=== PATIENT | male | born 1980 | race Caucasian/White ===

== ENCOUNTER 2017-02-18 20:56 | Inpatient (IN) | payer SELFPAY ==
[2017-02-18 21:08] LABS: #Basophils 0.1 thou/uL (0.0-0.2); #Eosinphils 0.2 thou/uL (0.0-0.7); #Lymphocytes 2.5 thou/uL (1.20-3.40); #Monocytes 0.7 thou/uL (0.11-0.59); #Neutrophils 6.8 thou/uL (1.40-6.50); %Basophils 0.9 % (0.0-1.0); %Eosinophils 2.1 % (0.0-10.0); %Lymphocytes 24.4 % (21.0-51.0); %Monocytes 6.6 % (0.0-10.0); Mean Platelet Volume 7.1 fL (7.4-10.4); Red Blood Cell (RBC) Count 4.66 mill/uL (4.70-6.10); White Blood Cell (WBC) Count 10.3 thou/uL (4.8-10.8)
[2017-02-18 21:16] LABS: PTT 23.4 SEC (22.9-36.1); Prothrombin Time 12.9 SEC (12.0-14.7)
[2017-02-18] MEDS ORDERED: Propofol 1,000 MG/100 ML VIAL IV ONE (21:17)
[2017-02-18 21:20] LABS: Lactic Acid - Sepsis 1.7 mmol/L (0.5-2.2)
[2017-02-18 21:23] LABS: ALT (SGPT) 18 U/L (8-55); AST (SGOT) 19 U/L (5-34); Alkaline Phosphatase 67 U/L (40-150); Anion Gap 14 mmol/L (10-20); BUN (Urea Nitrogen) 13 mg/dL (8.9-20.6); Bilirubin, Total 0.2 mg/dL (0.2-1.2); Calc. Creatinine Clearance 0 mL/min (70-130); Calcium 8.4 mg/dL (7.8-10.44); Carbon Dioxide 24 mmol/L (22-29); Chloride 105 mmol/L (98-107); Estimated GFR-MDRD 70; Globulin 2.9 g/dL (2.4-3.5); Lipase 23 U/L (8-78)
[2017-02-18 21:24] LABS: Acetaminophen Less than 6.0 mcg/mL (10.0-30.0); Salicylate Less than 8.0 mg/dL (15.0-30.0)
[2017-02-18 21:28] LABS: Bilirubin Negative (Negative); Blood, Urine Negative (Negative); Glucose, Urine (Dipstick) Negative (Negative); Ketone, Urine Negative (Negative); Nitrite Negative (Negative); Protein, Urine (Dipstick) Negative (Neg-Trace); Urobilinogen 0.2 mg/dL (0.2-1.0)
[2017-02-18 21:38] LABS: Amphetamine Not Detected (NotDetected); Methadone Not Detected (NotDetected); Methamphetamine Not Detected (NotDetected)
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
[2017-02-18] MEDS ORDERED: Sedation Protocol FS SCH (22:12)
[2017-02-18] MEDS ORDERED: DISCONTINUE PREVIOUS NARCOTIC PAIN MEDICATIONS AND BENZODIAZEPINES FS SCH (22:16)
[2017-02-18] MEDS ORDERED: Fentanyl 20 MCG/ML 250 ML IVPB SCH (22:16)
[2017-02-18] MEDS ORDERED: Lorazepam 2 MG/ML VIAL SLOW IVP PRN (22:16)
--- NOTE | 2017-02-18 22:24 | RAD ---
PORTABLE SUPINE CHEST: 02/18/17 Lungs are well aerated. ET tube is in place with tip above the jeremi. There is some questioned streaky atelectasis or infiltrate in the left lung base seen to the cardiac silhouette. This could potentially represent aspiration. Close followup recommended. IMPRESSION: Questioned atelectasis or streaky infiltrate in the left lung base seen to the cardiac silhouette. POS: [facility]
[2017-02-18] MEDS ORDERED: Morphine PF 1 MG/ML SYR IVP PRN (22:30)
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
[2017-02-18 22:58] LABS: Oxyhemoglobin 96.4 % (94.0-97.0); Sodium 141 mmol/L (135-148)
[2017-02-18 23:01] LABS: Mechanical Tidal Volume 500 ml; Mode SIMV; Modified Allen's Test POSITIVE; Vent YES
[2017-02-18] MEDS ORDERED: Dextrose 50% Abboject 50 ML SYRINGE SLOW IVP PRN (23:23)
[2017-02-18] MEDS ORDERED: Promethazine HCl 25 MG/ML VIAL IM PRN (23:23)
[2017-02-18] MEDS ORDERED: Dextrose 5% in Water 1,000 ML IV PRN (23:23)
[2017-02-18] MEDS ORDERED: Ondansetron HCl/PF 4 MG/2 ML Vial IVP PRN (23:23)
[2017-02-19] MEDS: Piperacillin/Tazobactam 4.5 GM in Sodium Chloride 0.9% 100 ML IVPB SCH ×5 (00:12→23:42)
[2017-02-19] MEDS: Propofol 1,000 MG/100 ML VIAL IV PRN ×4 (00:38→10:25)
[2017-02-19] MEDS: Sodium Chloride 0.9% 1,000 ML IV SCH ×2 (00:41→07:27)
[2017-02-19 00:50] VITALS: BMI 25.4
[2017-02-19 05:25] LABS: #Basophils 0.1 thou/uL (0.0-0.2); #Lymphocytes 2.5 thou/uL (1.20-3.40); #Monocytes 1.4 thou/uL (0.11-0.59); #Neutrophils 10.1 thou/uL (1.40-6.50); %Basophils 0.7 % (0.0-1.0); %Eosinophils 0.3 % (0.0-10.0); %Lymphocytes 17.8 % (21.0-51.0); %Monocytes 9.7 % (0.0-10.0); Hematocrit 42.7 % (42.0-52.0); Mean Platelet Volume 7.7 fL (7.4-10.4); Red Blood Cell (RBC) Count 4.61 mill/uL (4.70-6.10); White Blood Cell (WBC) Count 14.1 thou/uL (4.8-10.8)
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
[2017-02-19 05:48] LABS: Anion Gap 18 mmol/L (10-20); BUN (Urea Nitrogen) 13 mg/dL (8.9-20.6); Calc. Creatinine Clearance 110 mL/min (70-130); Calcium 8.9 mg/dL (7.8-10.44); Carbon Dioxide 21 mmol/L (22-29); Chloride 106 mmol/L (98-107); Estimated GFR-MDRD 81; Magnesium 2.5 mg/dL (1.6-2.6); Phosphorus 2.6 mg/dL (2.3-4.7)
[2017-02-19] MEDS ORDERED: Bacitracin Zinc 1 Packet TOP PRN (06:55)
[2017-02-19 07:43] LABS: Oxyhemoglobin 97.4 % (94.0-97.0); Sodium 141 mmol/L (135-148)
[2017-02-19 08:15] LABS: Mechanical Tidal Volume 500 ml; Modified Allen's Test NOT DONE; Pressure Support 10 cmH2O; Vent YES
[2017-02-19 08:16] LABS: Mode PSIMV
[2017-02-19] MEDS: Famotidine/PF 20 mg/2ml Vial SLOW IVP SCH ×3 (08:38→20:53)
[2017-02-19] MEDS ORDERED: FLU VACC QS2017-18 36 mo. & older 0.5 ML SYRINGE IM ONE (09:00)
--- NOTE | 2017-02-19 09:03 | RAD ---
PORTABLE SUPINE FRONTAL CHEST RADIOGRAPH: DATE: 02/19/17. COMPARISON: 02/18/17. HISTORY: Rib fractures, trauma. FINDINGS: Supine imaging is provided, limiting assessment for pneumothorax and pleural fluid. A nasogastric tu be extends into the upper abdomen. An endotracheal tube terminates at the level of the clavicular he ads. No focal consolidation or alveolar edema. IMPRESSION: Lines and tubes as detailed above. POS: [facility]
[2017-02-19] MEDS ORDERED: Chlorhexidine Gluconate 15 ML UDCUP SSP ONE (11:37)
[2017-02-19] MEDS ORDERED: Lidocaine 1% w/Epinephrine 1:200K 30 ML VIAL ONE (11:37)
[2017-02-19] MEDS ORDERED: Fentanyl 250 MCG/5 ML VIAL ONE (11:39)
[2017-02-19] MEDS ORDERED: Oxymetazoline HCl 0.05% ( 15 ML ) ONE (11:39)
[2017-02-19] MEDS ORDERED: Lidocaine 2% Jelly 5 ML TUBE ONE (11:40)
[2017-02-19] MEDS ORDERED: Sodium Chloride 0.9% 10 ML ONE (12:28)
[2017-02-19] MEDS ORDERED: Ondansetron HCl/PF 4 MG/2 ML Vial IVP PRN (13:38)
[2017-02-19] MEDS ORDERED: Promethazine HCl 25 MG/ML VIAL IM PRN (13:38)
[2017-02-19] MEDS ORDERED: Promethazine HCl 25 MG/ML VIAL SLOW IVP PRN (13:38)
[2017-02-19] MEDS ORDERED: Fentanyl 100 MCG/2 ML VIAL ONE (14:08)
[2017-02-19] MEDS ORDERED: traMADol HCl 50 MG TAB PO PRN (14:44)
[2017-02-19] MEDS: traMADol HCl 50 MG TAB PO PRN (16:20)
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
[2017-02-19] MEDS: Cephalexin 250 MG CAP PO SCH ×3 (16:24→21:02)
[2017-02-19] MEDS: Oxazepam 10 MG CAP PO SCH ×2 (16:24→21:02)
[2017-02-19] MEDS ORDERED: Acetaminophen 500 MG TAB PO SCH (18:00)
[2017-02-19] MEDS ORDERED: Ondansetron HCl/PF 4 MG/2 ML Vial ONE (18:11)
[2017-02-19] MEDS ORDERED: Glycopyrrolate 0.2 MG/ML 5 ML SYRINGE ONE (18:11)
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
[2017-02-19] MEDS: Chlorhexidine Gluconate 15 ML UDCUP SSP SCH (20:32)
[2017-02-19] MEDS: Ibuprofen 800 MG TAB PO SCH (21:02)
[2017-02-19] MEDS ORDERED: Hydrocodone-Acetamin 15 ML UDCUP PO PRN (21:07)
[2017-02-19] MEDS: Hydrocodone-Acetamin 15 ML UDCUP PO PRN (21:28)
[2017-02-20] MEDS: traMADol HCl 50 MG TAB PO PRN (01:53)
[2017-02-20] MEDS: Hydrocodone-Acetamin 15 ML UDCUP PO PRN (03:49)
[2017-02-20 05:34] LABS: #Basophils 0.1 thou/uL (0.0-0.2); #Eosinphils 0.3 thou/uL (0.0-0.7); #Lymphocytes 1.9 thou/uL (1.20-3.40); #Monocytes 0.9 thou/uL (0.11-0.59); #Neutrophils 4.4 thou/uL (1.40-6.50); %Basophils 0.8 % (0.0-1.0); %Eosinophils 3.4 % (0.0-10.0); %Monocytes 11.5 % (0.0-10.0); Hematocrit 37.2 % (42.0-52.0); Mean Platelet Volume 7.3 fL (7.4-10.4); Red Blood Cell (RBC) Count 3.96 mill/uL (4.70-6.10); White Blood Cell (WBC) Count 7.4 thou/uL (4.8-10.8)
[2017-02-20 06:00] LABS: Anion Gap 8 mmol/L (10-20); BUN (Urea Nitrogen) 9 mg/dL (8.9-20.6); Calc. Creatinine Clearance 98 mL/min (70-130); Calcium 8.5 mg/dL (7.8-10.44); Carbon Dioxide 29 mmol/L (22-29); Chloride 106 mmol/L (98-107); Estimated GFR-MDRD 71; Magnesium 2.1 mg/dL (1.6-2.6); Phosphorus 3.3 mg/dL (2.3-4.7)
[2017-02-20] MEDS: Ibuprofen 800 MG TAB PO SCH ×3 (06:11→21:02)
[2017-02-20] MEDS: Piperacillin/Tazobactam 4.5 GM in Sodium Chloride 0.9% 100 ML IVPB SCH (06:11)
[2017-02-20] MEDS: Oxazepam 10 MG CAP PO SCH ×3 (06:11→21:02)
[2017-02-20] MEDS: Folic Acid 1 MG TAB PO SCH (08:28)
[2017-02-20] MEDS: Cephalexin 250 MG CAP PO SCH ×4 (08:28→20:51)
[2017-02-20] MEDS: Famotidine/PF 20 mg/2ml Vial SLOW IVP SCH (08:28)
[2017-02-20] MEDS: Chlorhexidine Gluconate 15 ML UDCUP SSP SCH ×2 (08:28→20:51)
[2017-02-20] MEDS ORDERED: Hydrocodone-Acetamin 15 ML UDCUP PO PRN ×2 (09:17)
[2017-02-20] MEDS ORDERED: HYDROcodone/Acetaminophen 7.5/325 mg Tablet PO PRN (10:07)
--- NOTE | 2017-02-20 10:30 | PRG ---
DATE OF PROGRESS NOTE: 02/20/2017 SUBJECTIVE: Manjeet Cotton is awake and alert this morning, open wound in his left base present. Bandag e present. He is tolerating his diet. OBJECTIVE: LUNGS: Clear to auscultation. CARDIAC: Regular rate and rhythm without murmur or gallop. ABDOMEN: Soft, nontender. EXTREMITIES: Unremarkable. PLAN: Patient requiring Lortab elixir for pain control. [facility] will be seeing him today. Patient is r ana for transfer to the psychiatric center for his suicide attempt. He is stable from a medical sta ndpoint. He can be discharged home today. Pending [facility] evaluation. He will follow up with [facility] as an outpatient.
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
[2017-02-20] MEDS: HYDROcodone/Acetaminophen 7.5/325 mg Tablet PO PRN ×3 (14:15→23:36)
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
[2017-02-20] MEDS: Famotidine 20 MG TAB PO SCH (20:52)
[2017-02-20] MEDS: Enoxaparin Sodium 40 MG/0.4 ML SYRINGE SC SCH (20:52)
[2017-02-21] MEDS: Oxazepam 10 MG CAP PO SCH ×3 (06:19→21:11)
[2017-02-21] MEDS: Ibuprofen 800 MG TAB PO SCH ×3 (06:19→21:11)
[2017-02-21] MEDS: HYDROcodone/Acetaminophen 7.5/325 mg Tablet PO PRN ×5 (06:19→22:11)
[2017-02-21] MEDS: Folic Acid 1 MG TAB PO SCH (08:41)
[2017-02-21] MEDS: Cephalexin 250 MG CAP PO SCH ×4 (08:42→21:10)
[2017-02-21] MEDS: Famotidine 20 MG TAB PO SCH ×2 (08:42→21:11)
[2017-02-21] MEDS: Chlorhexidine Gluconate 15 ML UDCUP SSP SCH ×2 (08:42→21:11)
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
[2017-02-21] MEDS: Enoxaparin Sodium 40 MG/0.4 ML SYRINGE SC SCH (21:11)
[2017-02-22] MEDS: HYDROcodone/Acetaminophen 7.5/325 mg Tablet PO PRN (06:14)
[2017-02-22] MEDS: Ibuprofen 800 MG TAB PO SCH ×3 (06:15→21:58)
[2017-02-22] MEDS: Oxazepam 10 MG CAP PO SCH ×3 (06:15→21:58)
[2017-02-22] MEDS: Cephalexin 250 MG CAP PO SCH ×4 (09:13→21:58)
[2017-02-22] MEDS: Chlorhexidine Gluconate 15 ML UDCUP SSP SCH ×2 (09:13→21:58)
[2017-02-22] MEDS: Famotidine 20 MG TAB PO SCH ×2 (09:13→22:06)
[2017-02-22] MEDS: Folic Acid 1 MG TAB PO SCH (09:13)
[2017-02-22] MEDS: Acetaminophen 500 MG TAB PO SCH ×3 (10:40→21:58)
[2017-02-22] MEDS: Ondansetron ODT 4 MG TAB PO PRN (11:29)
[2017-02-22] MEDS: traMADol HCl 50 MG TAB PO SCH ×3 (11:29→22:06)
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
[2017-02-22] MEDS: Enoxaparin Sodium 40 MG/0.4 ML SYRINGE SC SCH (21:58)
[2017-02-23] MEDS: Acetaminophen 500 MG TAB PO SCH ×4 (03:28→21:54)
[2017-02-23] MEDS: traMADol HCl 50 MG TAB PO SCH ×4 (03:29→21:55)
[2017-02-23] MEDS: Ibuprofen 800 MG TAB PO SCH ×3 (06:17→21:55)
[2017-02-23] MEDS: Oxazepam 10 MG CAP PO SCH ×3 (06:17→21:55)
[2017-02-23] MEDS: Folic Acid 1 MG TAB PO SCH (09:58)
[2017-02-23] MEDS: Cephalexin 250 MG CAP PO SCH ×4 (09:59→21:54)
[2017-02-23] MEDS: Famotidine 20 MG TAB PO SCH ×2 (09:59→21:55)
[2017-02-23] MEDS: Chlorhexidine Gluconate 15 ML UDCUP SSP SCH ×2 (11:35→21:54)
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
[2017-02-23] MEDS: Enoxaparin Sodium 40 MG/0.4 ML SYRINGE SC SCH (21:55)
[2017-02-24] MEDS: Acetaminophen 500 MG TAB PO SCH ×4 (02:43→21:26)
[2017-02-24] MEDS: traMADol HCl 50 MG TAB PO SCH ×4 (02:44→21:27)
[2017-02-24] MEDS: Oxazepam 10 MG CAP PO SCH ×3 (06:42→22:32)
[2017-02-24] MEDS: Ibuprofen 800 MG TAB PO SCH ×3 (06:42→21:27)
[2017-02-24] MEDS: Ondansetron ODT 4 MG TAB PO PRN ×3 (06:42→21:26)
[2017-02-24] MEDS: Famotidine 20 MG TAB PO SCH ×2 (08:25→21:26)
[2017-02-24] MEDS: Chlorhexidine Gluconate 15 ML UDCUP SSP SCH ×2 (08:25→21:27)
[2017-02-24] MEDS: Cephalexin 250 MG CAP PO SCH ×4 (08:25→21:26)
[2017-02-24] MEDS: Folic Acid 1 MG TAB PO SCH (08:25)
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
[2017-02-24] MEDS: Enoxaparin Sodium 40 MG/0.4 ML SYRINGE SC SCH (21:26)
[2017-02-24] MEDS: diphenhydrAMINE 25 MG CAP PO PRN (22:47)
[2017-02-25] MEDS: traMADol HCl 50 MG TAB PO SCH ×4 (03:19→20:54)
[2017-02-25] MEDS: Acetaminophen 500 MG TAB PO SCH ×4 (03:20→20:53)
[2017-02-25] MEDS: Ondansetron ODT 4 MG TAB PO PRN ×4 (03:23→20:53)
[2017-02-25] MEDS: Ibuprofen 800 MG TAB PO SCH ×3 (06:02→22:31)
[2017-02-25] MEDS: Oxazepam 10 MG CAP PO SCH ×3 (06:02→22:31)
[2017-02-25] MEDS ORDERED: ISOVUE-370 76%-LOCM 1 ML ONE (07:54)
[2017-02-25] MEDS: Folic Acid 1 MG TAB PO SCH (08:40)
[2017-02-25] MEDS: Chlorhexidine Gluconate 15 ML UDCUP SSP SCH ×2 (08:40→20:53)
[2017-02-25] MEDS: Cephalexin 250 MG CAP PO SCH ×4 (08:40→20:53)
[2017-02-25] MEDS: Famotidine 20 MG TAB PO SCH ×2 (08:40→21:05)
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
[2017-02-25] MEDS ORDERED: Morphine 2 mg/2ml in 0.9% NaCl PF SYRINGE SLOW IVP SCH (17:45)
--- NOTE | 2017-02-25 17:53 | CT ---
EXAM: CT FACIAL BONES WITH CONTRAST 02/25/17 HISTORY: Swelling. Recent trauma. COMPARISON: Noncontrast facial bone CT 02/18/17. TECHNIQUE: A postcontrast facial bone CT is performed in the axial plane. Reformatted images are submitted for i nterpretation. FINDINGS: there is interval resolution of previously noted subcutaneous emphysema along the left facial soft ti ssue structures. There is persistent induration and edema of the left facial subcutaneous fat. There is stable edema involving the left muscles of mastication. There is stable intrinsic hyperdensity inv olving the left masseter muscle. There is no evidence of a soft tissue abscess in the left face. Symmetric signal intensity enhancement of the parotid and submandibular glands. Symmetric signal enha ncement of the sternocleidomastoid muscles. No evidence of lymphadenopathy in the visualized facial structures. The aerodigestive tract is patent . No mucosal abnormality. No obvious masses in the oral cavity. Midline fatty raphae of the tongue is preserved. Adequate aeration of the sinuses and mastoid air cells. Minimal left maxillary sinus mucosal disease. Bilaterally, osteomeatal complexes are patent. Nasal septum is intact. Appropriate appearance and configuration of the left and right mandibular condyles. Mandible and maxi lla does not demonstrate any fracture. IMPRESSION: Left facial swelling and posttraumatic change. No evidence of a drainable abscess. POS: [facility]
[2017-02-25] MEDS: Enoxaparin Sodium 40 MG/0.4 ML SYRINGE SC SCH (20:55)
[2017-02-25] MEDS: diphenhydrAMINE 25 MG CAP PO PRN (22:31)
[2017-02-26] MEDS: traMADol HCl 50 MG TAB PO SCH ×4 (03:32→23:36)
[2017-02-26] MEDS: Acetaminophen 500 MG TAB PO SCH ×4 (03:33→21:39)
[2017-02-26] MEDS: Ibuprofen 800 MG TAB PO SCH ×3 (05:48→21:39)
[2017-02-26] MEDS: Oxazepam 10 MG CAP PO SCH ×3 (05:48→21:39)
[2017-02-26] MEDS: Chlorhexidine Gluconate 15 ML UDCUP SSP SCH ×2 (08:38→21:39)
[2017-02-26] MEDS: Famotidine 20 MG TAB PO SCH ×2 (08:38→21:39)
[2017-02-26] MEDS: Folic Acid 1 MG TAB PO SCH (08:38)
[2017-02-26] MEDS: Cephalexin 250 MG CAP PO SCH ×3 (08:38→17:31)
[2017-02-26] MEDS: Ondansetron ODT 4 MG TAB PO PRN ×2 (09:53→15:38)
[2017-02-26] MEDS ORDERED: Morphine 4 MG/ML VIAL SLOW IVP SCH ×2 (12:00→17:45)
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
[2017-02-26] MEDS ORDERED: Clindamycin 150 MG CAP PO SCH (17:30)
[2017-02-26] MEDS ORDERED: traMADol HCl 50 MG TAB PO SCH ×2 (19:00→23:59)
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
[2017-02-26] MEDS: diphenhydrAMINE 25 MG CAP PO PRN (22:51)
[2017-02-26] MEDS: Clindamycin 150 MG CAP PO SCH (23:36)
[2017-02-27] MEDS: Acetaminophen 500 MG TAB PO SCH ×4 (03:58→21:06)
[2017-02-27] MEDS: Clindamycin 150 MG CAP PO SCH ×4 (05:36→23:49)
[2017-02-27] MEDS: traMADol HCl 50 MG TAB PO SCH ×4 (05:36→23:49)
[2017-02-27] MEDS: Ibuprofen 800 MG TAB PO SCH ×3 (05:36→21:06)
[2017-02-27] MEDS: Oxazepam 10 MG CAP PO SCH ×3 (05:36→21:06)
[2017-02-27] MEDS: Famotidine 20 MG TAB PO SCH ×2 (08:56→21:06)
[2017-02-27] MEDS: Folic Acid 1 MG TAB PO SCH (08:56)
[2017-02-27] MEDS: Chlorhexidine Gluconate 15 ML UDCUP SSP SCH ×2 (09:59→21:06)
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
[2017-02-27] MEDS: Enoxaparin Sodium 40 MG/0.4 ML SYRINGE SC SCH (21:07)
[2017-02-27] MEDS: diphenhydrAMINE 25 MG CAP PO PRN (23:49)
[2017-02-28] MEDS: Acetaminophen 500 MG TAB PO SCH ×4 (04:20→21:12)
[2017-02-28] MEDS: Ibuprofen 800 MG TAB PO SCH ×3 (06:56→21:12)
[2017-02-28] MEDS: Clindamycin 150 MG CAP PO SCH ×3 (06:56→17:50)
[2017-02-28] MEDS: Oxazepam 10 MG CAP PO SCH ×3 (06:56→21:13)
[2017-02-28] MEDS: traMADol HCl 50 MG TAB PO SCH ×3 (06:56→17:50)
[2017-02-28] MEDS: Famotidine 20 MG TAB PO SCH ×2 (09:12→20:32)
[2017-02-28] MEDS: Folic Acid 1 MG TAB PO SCH (09:12)
[2017-02-28] MEDS: Chlorhexidine Gluconate 15 ML UDCUP SSP SCH ×2 (10:18→21:13)
[2017-02-28] MEDS ORDERED: Dexamethasone 4 mg/ml Vial SLOW IVP SCH (12:00)
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
[2017-02-28] MEDS: Dexamethasone 4 MG TAB PO SCH ×2 (12:09→20:32)
[2017-02-28] MEDS: Enoxaparin Sodium 40 MG/0.4 ML SYRINGE SC SCH (20:33)
[2017-03-01] MEDS: traMADol HCl 50 MG TAB PO SCH ×5 (00:24→23:56)
[2017-03-01] MEDS: Clindamycin 150 MG CAP PO SCH ×5 (00:24→23:56)
[2017-03-01] MEDS: Acetaminophen 500 MG TAB PO SCH ×4 (04:58→21:31)
[2017-03-01] MEDS: Dexamethasone 4 MG TAB PO SCH ×3 (05:47→20:14)
[2017-03-01] MEDS: Ibuprofen 800 MG TAB PO SCH ×3 (05:47→21:31)
[2017-03-01] MEDS: Oxazepam 10 MG CAP PO SCH ×3 (05:47→20:15)
[2017-03-01] MEDS: Chlorhexidine Gluconate 15 ML UDCUP SSP SCH ×2 (09:06→20:15)
[2017-03-01] MEDS: Folic Acid 1 MG TAB PO SCH (09:07)
[2017-03-01] MEDS: Famotidine 20 MG TAB PO SCH ×2 (09:07→20:14)
[2017-03-01] MEDS: diphenhydrAMINE 25 MG CAP PO PRN (16:00)
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
[2017-03-01] MEDS: Enoxaparin Sodium 40 MG/0.4 ML SYRINGE SC SCH (20:15)
[2017-03-02] MEDS: Acetaminophen 500 MG TAB PO SCH ×5 (04:28→23:27)
[2017-03-02] MEDS: Dexamethasone 4 MG TAB PO SCH ×3 (04:28→20:56)
[2017-03-02] MEDS: Clindamycin 150 MG CAP PO SCH ×4 (05:38→23:27)
[2017-03-02] MEDS: Ibuprofen 800 MG TAB PO SCH ×3 (05:38→20:57)
[2017-03-02] MEDS: traMADol HCl 50 MG TAB PO SCH ×4 (05:38→23:27)
[2017-03-02] MEDS: Oxazepam 10 MG CAP PO SCH ×2 (08:13→20:56)
[2017-03-02] MEDS: Folic Acid 1 MG TAB PO SCH (08:13)
[2017-03-02] MEDS: Chlorhexidine Gluconate 15 ML UDCUP SSP SCH ×2 (08:13→20:55)
[2017-03-02] MEDS: Famotidine 20 MG TAB PO SCH ×2 (08:13→20:56)
[2017-03-02] MEDS ORDERED: Escitalopram Oxalate 10 mg Tablet PO SCH (14:45)
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
[2017-03-02] MEDS: diphenhydrAMINE 25 MG CAP PO PRN (20:55)
[2017-03-02] MEDS: Enoxaparin Sodium 40 MG/0.4 ML SYRINGE SC SCH (20:56)
[2017-03-03] MEDS: Dexamethasone 4 MG TAB PO SCH ×3 (05:04→21:04)
[2017-03-03] MEDS: traMADol HCl 50 MG TAB PO SCH ×4 (05:04→23:50)
[2017-03-03] MEDS: Acetaminophen 500 MG TAB PO SCH ×4 (05:05→23:50)
[2017-03-03] MEDS: Ibuprofen 800 MG TAB PO SCH ×3 (05:05→21:04)
[2017-03-03] MEDS: Clindamycin 150 MG CAP PO SCH ×4 (05:05→23:50)
[2017-03-03] MEDS: Famotidine 20 MG TAB PO SCH ×2 (08:50→21:04)
[2017-03-03] MEDS: Escitalopram Oxalate 10 mg Tablet PO SCH (08:51)
[2017-03-03] MEDS: Folic Acid 1 MG TAB PO SCH (08:51)
[2017-03-03] MEDS: Chlorhexidine Gluconate 15 ML UDCUP SSP SCH ×2 (08:51→21:04)
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
[2017-03-03] MEDS: Enoxaparin Sodium 40 MG/0.4 ML SYRINGE SC SCH (21:04)
[2017-03-03] MEDS: diphenhydrAMINE 25 MG CAP PO PRN (21:04)
[2017-03-04] MEDS: traMADol HCl 50 MG TAB PO SCH ×2 (05:00→12:05)
[2017-03-04] MEDS: Clindamycin 150 MG CAP PO SCH ×2 (05:00→12:05)
[2017-03-04] MEDS: Ibuprofen 800 MG TAB PO SCH ×2 (05:00→14:26)
[2017-03-04] MEDS: Acetaminophen 500 MG TAB PO SCH ×2 (05:00→12:05)
[2017-03-04] MEDS: Dexamethasone 4 MG TAB PO SCH ×2 (05:00→12:05)
[2017-03-04] MEDS: Chlorhexidine Gluconate 15 ML UDCUP SSP SCH (08:25)
[2017-03-04] MEDS: Famotidine 20 MG TAB PO SCH (08:25)
[2017-03-04] MEDS: Folic Acid 1 MG TAB PO SCH (08:25)
[2017-03-04] MEDS: Escitalopram Oxalate 10 mg Tablet PO SCH (08:25)
[2017-03-04 13:02] VITALS: BP 123/72; TEMP 98.1
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
== END 2017-03-04 14:50 | DRG 579 ==
LOC: ERS 20:56 → EDBD 20:56 → CCU 23:56 → SURG A 02-19 14:07 → SJJU 02-19 14:34 → SURG A 02-20 17:22
PROVIDERS: ADMIT Surgery; ATTEND Surgery
PROC: 5A1945Z Respiratory Ventilation, 24-96 Consecutive Hours (ICD-10-PCS; 2017-02-18)
PROC: 0JD13ZZ Extraction of Face Subcutaneous Tissue and Fascia, Percutaneous Approach (ICD-10-PCS; principal; 2017-02-19)
PROC: 0JU137Z Supplement of Face Subcutaneous Tissue and Fascia with Autologous Tissue Substitute, Percutaneous Approach (ICD-10-PCS; 2017-02-19)
PROC: 0H91XZZ Drainage of Face Skin, External Approach (ICD-10-PCS; 2017-02-26)
DX: S01.402A Unspecified open wound of left cheek and temporomandibular area, initial encounter (principal); J96.90 Respiratory failure, unspecified, unspecified whether with hypoxia or hypercapnia; S09.10XA Unspecified injury of muscle and tendon of head, initial encounter; F15.90 Other stimulant use, unspecified, uncomplicated; F12.90 Cannabis use, unspecified, uncomplicated; F32.9 Major depressive disorder, single episode, unspecified
CPT/HCPCS: 36415; 36416; 51702; 70450; 70486; 70487; 71010; 72125; 80048; 80053; 80306; 80307; 81003; 82805; 83605; 83690; 83735; 84100; 85025; 85610; 85730; 86850; 86900; 86901; 90471; 94002; 94003; 94640; 94760; 96365; 96366; A4216; G0390; J1650; J2270; J2405; J2543; J2704; J3010; J3490; J7050; J7620; J8540; Q0162; S0028